=== PATIENT | male | born 1965 | race African-American/Black ===

== ENCOUNTER 2022-07-20 10:10 | Emergency (ER) | payer MEDICARE, MEDICAID ==
[~2022-07-20] VITALS: Ht 198.1 cm; Wt 117.9 kg
[2022-07-20] MEDS ORDERED: METFORMIN HCL500 MG PO (11:52)
[2022-07-20] MEDS ORDERED: ONDANSETRON ODT8 MG PO (11:53)
== END 2022-07-20 13:25 | disposition home or self-care (01) ==
LOC: ED 10:10
DX: E11.9 Type 2 diabetes mellitus without complications (principal); Z20.822 Contact with and (suspected) exposure to COVID-19
CPT/HCPCS: 36415; 80053; 81003; 85025; 87502; 96361; 96374; 99284-25; C9803; J2405; J7030; U0003